=== PATIENT | male | born 1950 | race American Indian/Alaskan Native ===

== ENCOUNTER 2017-12-27 17:52 | Inpatient (IN) | payer MEDICARE, SELFPAY ==
--- NOTE | 2017-12-27 18:30 | ED PDOC ---
Arrival/HPI - General Chief Complaint: Lower Extremity Problem/Injury Time Seen by Provider: 12/27/17 18:14 Historian: Patient - History of Present Illness Narrative History of Present Illness (Text): 12/27/17 18:22 67 y/o male, pmh including htn/hyperlipidemia/DVT which he is on the coumadin on the RLE with IVC filter/chronic bilateral lower extremity swelling on and off for over past few months since september 2017/nephrotomy, last bilateral venuous doppler on the lower extremity was perform in 09/2016 which he stated that he had no DVT at that time, biba c/o bilateral lower extremity pain and swelling started about 3 days ago from eating fish?. Pt. stated that he has bilateral knee and lt. ankle pain, on and off, taking coumadin 10mg po daily, no fall or trauma, no chest pain or shortness of breath, no rash, no night sweat , no other medical or psychological complaints. Past Medical History - Provider Review Nursing Documentation Reviewed: Yes - Infectious Disease Hx of Infectious Diseases: None - Cardiac Hx Hypertension: Yes Hx Peripheral Vascular Disease: Yes Other/Comment: DVT with IVC filter - Renal Hx Renal Disorder: Yes Other/Comment: Nephrectomy - solitary kidney - Psychiatric Hx Substance Use: No - Surgical History Other/Comment: IVC filter - Anesthesia Hx Anesthesia: Yes Hx Anesthesia Reactions: No Hx Malignant Hyperthermia: No Family/Social History - Physician Review Nursing Documentation Reviewed: Yes Family/Social History: Unknown Family HX Smoking Status: Never Smoked Hx Alcohol Use: No Hx Substance Use: No Allergies/Home Meds Allergies/Adverse Reactions: Allergies No Known Allergies Allergy (Verified 12/27/17 18:21) Home Medications: Home Meds Medication Instructions Recorded Confirmed Lovastatin [Altoprev] 1 tab PO DAILY 12/27/17 12/27/17 Warfarin [Coumadin] 1 tab PO DAILY 12/27/17 12/27/17 amLODIPine [Norvasc] 1 tab PO DAILY 12/27/17 12/27/17 Review of Systems - Review of Systems Constitutional: absent: Fatigue, Fevers Eyes: absent: Vision Changes ENT: absent: Hearing Changes Respiratory: absent: SOB, Cough Cardiovascular: absent: Chest Pain Gastrointestinal: absent: Abdominal Pain, Nausea, Vomiting Musculoskeletal: Arthralgias, Myalgias. absent: Back Pain, Neck Pain, Joint Swelling Skin: absent: Rash, Pruritis, Skin Lesions Neurological: absent: Headache, Dizziness Psychiatric: absent: Anxiety, Depression Physical Exam Vital Signs Reviewed: Yes Vital Signs Temp Pulse Resp BP Pulse Ox 12/27/17 18:26 98.0 F 55 L 24 131/67 97 Temperature: Afebrile Blood Pressure: Normal Pulse: Bradycardic Respiratory Rate: Normal Appearance: Positive for: Well-Appearing, Non-Toxic, Comfortable Pain Distress: Moderate Mental Status: Positive for: Alert and Oriented X 3 - Systems Exam Head: Present: Atraumatic, Normocephalic Pupils: Present: PERRL Extroacular Muscles: Present: EOMI Conjunctiva: Present: Normal Mouth: Present: Moist Mucous Membranes Neck: Present: Normal Range of Motion Respiratory/Chest: Present: Clear to Auscultation, Good Air Exchange. No: Respiratory Distress, Accessory Muscle Use Cardiovascular: Present: Regular Rate and Rhythm, Normal S1, S2. No: Murmurs Abdomen: No: Tenderness, Distention, Peritoneal Signs Back: Present: Normal Inspection Upper Extremity: Present: Normal Inspection. No: Cyanosis, Edema Lower Extremity: Present: Normal Inspection, NORMAL PULSES, Normal ROM, Neurovascularly Intact, Capillary Refill < 2 s, Other (Bilateral lower extremities: +ttp on the rt. knee joint with mild swelling, +ttp on the lt. ankle and knee joint with mild swelling, 1+pedal edema bilateral lower extremities, no streaking, no cellulitis, +DPPT pulses, capillary refill< 2 seconds, neurovascular intact. ). No: Edema, Erythema, Deformity, Temperature Abnormalties Neurological: Present: GCS=15, CN II-XII Intact, Speech Normal Skin: Present: Warm, Dry, Normal Color. No: Rashes Psychiatric: Present: Alert, Oriented x 3, Normal Insight, Normal Concentration Medical Decision Making ED Course and Treatment: 12/27/17 18:39 -labs/bnp/uric acid/cardiac enzyme -Bilateral lower extremities venuous doppler -Chest xray/bilateral knee and lt. ankle xray -Colchicine 1.2mg po -Observe and reassess 12/27/17 20:11 -Bilateral lower extremities venuous doppler: as per preliminary report, partial thrombus on the rt. posterior popliteal thrombus -Chest xray show no active disease -Bilateral knee xrays show degenerative changes -Lt. ankle xray show post surgical changes, no fracture or dislocation -Labs show no acute findings except BUN 29 -BNP with normal limit -Troponin within normal limit -Uric acid with normal limit which the colchicine didn't relief the pain. -Pt. still in pain, percocet/zofrant ordered. -Pt. feels still having pain, on coumadin but keep having new DVT developed which is failure of outpatient treatment in this case. He has bilateral knee pain and swelling, high fall risk, been having pain with dehydration, will need orthopedic and hematology/oncology for consult. -Paging Dr. Huerta now for admission 12/27/17 21:13 -I spoke to Dr. Huerta discussed about the case/labs/radiology results in detail , request Dr. Puente (hematology and oncology) and Dr. House (orthopedic) on the routine consult, order placed and also request heparin drip despite INR 2.6. -I spoke to Dr. Banda about the case/labs/radiology result, he agreed with the IV heparin drip standard for dvt/pe but no IV heparin bolus. -I discussed all labs/radiology results and care of the plan with the patient and the daughter, they all agreed. Pt. refused guaiac and has no abdominal pain , no black color stool or stool discoloration. 12/27/17 21:21 -I spoke to the pharmacist Hernan, confirmed the order that I entered is IV heparin drip with no IV bolus. - Lab Interpretations Lab Results: 12/27/17 18:50 12/27/17 18:50 Lab Results 12/27/17 18:50: Sodium 144, Potassium 4.8, Chloride 107, Carbon Dioxide 27, Anion Gap 15, BUN 29 H, Creatinine 1.5, Est GFR ( Amer) 56, Est GFR (Non- Af Amer) 46, Random Glucose 102, Uric Acid 8.0, Calcium 9.3, Magnesium 2.0, Total Bilirubin 0.4, AST 35, ALT 30, Alkaline Phosphatase 78, Lactate Dehydrogenase 487, Total Creatine Kinase 206, Troponin I < 0.01, NT-Pro-B Natriuret Pep 119, Total Protein 7.8, Albumin 4.2, Globulin 3.6, Albumin/ Globulin Ratio 1.2 12/27/17 18:50: PT 30.8 H, INR 2.65 H, APTT 41.8 H 12/27/17 18:50: WBC 6.8, RBC 4.65, Hgb 12.7 L, Hct 38.6 L, MCV 83.0, MCH 27.3, MCHC 32.9, RDW 15.2 H, Plt Count 233, MPV 9.8, Gran % 56.6, Lymph % (Auto) 32.4 , Brantley % (Auto) 8.8 H, Eos % (Auto) 1.9, Baso % (Auto) 0.3, Gran # 3.87, Lymph # (Auto) 2.2, Brantley # (Auto) 0.6, Eos # (Auto) 0.1, Baso # (Auto) 0.02 I have reviewed the lab results: Yes - RAD Interpretation Radiology Orders: 12/27/17 18:30 CHEST PORTABLE [RAD] Stat DUPLEX LOWER EXTRM VEIN BILAT [US] Stat 12/27/17 18:31 ANKLE LEFT 3 VIEWS ROUTINE [RAD] Stat KNEE W PATELLA BILAT 3 VIEW [RAD] Stat Bilateral lower extremities venuous doppler: as per preliminary report, partial thrombus on the rt. posterior popliteal thrombus Chest xray: Lt. ankle xray: Bilateral knee xrays: Insurance Collector: Radiologist - EKG Interpretation Interpreted by ED Physician: Yes - Medication Orders Current Medication Orders: Heparin Sodium/Sodium Chloride (Heparin 12876 Units/250ml 1/2 Normal Saline) 25 ,000 units in 250 mls @ 15.546 mls/hr IV .Q16H5M PRN; Protocol; 18 UNITS/KG/HR PRN Reason: ADJUST RATE PER PROTOCOL Discontinued Medications Colchicine (Colocrys) 0.6 mg PO DAILY [facility] Colchicine (Colocrys) 1.2 mg PO STAT STA Stop: 12/27/17 18:33 Last Admin: 12/27/17 18:43 Dose: 1.2 mg Sodium Chloride (Sodium Chloride 0.9%) 500 mls @ 999 mls/hr IV .Q31M STA Stop: 12/27/17 19:58 Last Admin: 12/27/17 20:07 Dose: 999 mls/hr eMAR Start Stop Document 12/27/17 20:07 OCS (Rec: 12/27/17 20:07 OCS [id number]) Intravenous Solution Start Date 12/27/17 Start Time 20:07 End Date 12/27/17 End time 20:37 Total Infusion Time 30 Ondansetron HCl (Zofran Odt) 4 mg PO STAT STA Stop: 12/27/17 21:13 Oxycodone/Acetaminophen (Percocet 5/325 Mg Tab) 1 tab PO STAT STA Stop: 12/27/17 21:13 - PA / [employer] / Resident Statement / has reviewed & agrees with the documentation as recorded. Disposition/Present on Arrival - Present on Arrival Any Indicators Present on Arrival: No History of DVT/PE: No History of Uncontrolled Diabetes: No Urinary Catheter: No History of Decub. Ulcer: No History Surgical Site Infection Following: None - Disposition Have Diagnosis and Disposition been Completed?: Yes Diagnosis: Dehydration, Failure of outpatient treatment, DVT (deep venous thrombosis), Joint swelling of lower leg Disposition: HOSPITALIZED Disposition Time: 18:41 Patient Plan: Admission Patient Problems: Current Active Problems Problem Status Onset Dehydration Acute Failure of outpatient treatment Acute DVT (deep venous thrombosis) Acute Joint swelling of lower leg Acute Condition: STABLE Referrals: Ian Epstein MD [Primary Care Provider] - Follow up with primary Forms: Spodly (Chinese)
[2017-12-27 19:05] LABS: BASO # 0.02 K/mm3 (0.0-2.0); BASO % 0.3 % (0.0-3.0); EOS # 0.1 (0.0-0.7); EOS % 1.9 % (1.5-5.0); GRAN # 3.87 (1.4-6.5); GRAN % 56.6 % (50.0-68.0); HEMOGLOBIN 12.7 g/dL (14.0-18.0); LYMPH # 2.2 (1.2-3.4); LYMPH % 32.4 % (22.0-35.0); MEAN CORPUSCULAR HEMOGLOBIN 27.3 pg (25.0-35.0); MEAN CORPUSCULAR HGB CONC 32.9 g/dl (31.0-37.0); MEAN PLATELET VOLUME 9.8 fl (7.0-11.0); MONO # 0.6 (0.1-0.6); MONO % 8.8 % (1.0-6.0); RBC 4.65 10^6/uL (3.5-6.1); RED CELL DISTRIBUTION WIDTH 15.2 % (11.5-14.5); WHITE BLOOD COUNT 6.8 10^3/ul (4.5-11.0)
[2017-12-27 19:12] LABS: INR 2.65 (0.93-1.08); PARTIAL THROMBOPLASTIN TIME 41.8 Seconds (25.1-36.5); PROTHROMBIN TIME 30.8 SECONDS (9.4-12.5)
[2017-12-27 19:14] LABS: ALB/GLOB RATIO 1.2 (1.1-1.8); ALBUMIN 4.2 g/dL (3.0-4.8); ALT/SGPT 30 U/L (7-56); AST/SGOT 35 U/L (17-59); BLOOD UREA NITROGEN 29 mg/dL (7-21); CALCIUM 9.3 mg/dL (8.4-10.5); GFR AFRICAN-AMERICAN 56; GFR NON-AFRICAN AMERICAN 46
[2017-12-27 19:25] LABS: B-TYPE NATRIURETIC PEPTIDE 119 pg/mL (0-450); TROPONIN I < 0.01 ng/mL
[2017-12-27] MEDS ORDERED: Sodium Chloride 0.9% 500 ML IV STA (19:28)
[2017-12-27] MEDS ORDERED: Oxycodone/Acetaminophen 5/325 mg Tab PO STA (21:12)
[2017-12-27] MEDS: Heparin25000 units/250ml 1/2NS 25,000 UNITS/250 ML BAG IV PRN (21:49)
[2017-12-27 23:17] VITALS: BMI 30.7
[2017-12-27] MEDS ORDERED: Pneumococcal 23-Valent Vaccine IM ONE (23:34)
--- NOTE | 2017-12-28 08:52 | RAD ---
HISTORY: leg pain COMPARISON: No prior. FINDINGS: LUNGS: No active pulmonary disease. PLEURA: No significant pleural effusion identified, no pneumothorax apparent. CARDIOVASCULAR: Mild cardiomegaly OSSEOUS STRUCTURES: No significant abnormalities. VISUALIZED UPPER ABDOMEN: Normal. OTHER FINDINGS: None. IMPRESSION: No active disease.
--- NOTE | 2017-12-28 09:37 | RAD ---
PROCEDURE: Left Ankle Radiographs. HISTORY: pain and swelling COMPARISON: None FINDINGS: BONES: There is an old fracture deformity of the distal tibia and fibula. No acute fracture JOINTS: Normal. No osteoarthritis. Ankle mortise maintained. Talar dome intact SOFT TISSUES: Normal. OTHER FINDINGS: None. IMPRESSION: There is an old fracture deformity of the distal tibia and fibula. No acute fracture
--- NOTE | 2017-12-28 10:09 | RAD ---
PROCEDURE: Bilateral knees and patella HISTORY: pain and swelling COMPARISON: TECHNIQUE: Three views of each knee FINDINGS: The left knee is unremarkable. There is an old fracture of the proximal fibula. Severe degenerative changes are seen in the medial compartment of the right knee with joint space narrowing, bony sclerosis and osteophyte formation. Degenerative changes are also seen in the patellofemoral joint. IMPRESSION: As above
[2017-12-28] MEDS: LOVASTATIN 20 MG PO SCH (14:11)
--- NOTE | 2017-12-28 14:48 | CP.PCM.CON ---
History of Present Illness - History of Present Illness History of Present Illness: Heme Onc Consult Note Dr. Puente CC: Right leg pain and swelling HPI: 67 AA M with a PMHx of HTN, HLD, CAD, RLE DVT (7 years ago) on coumadin 10 mg daily, left nephrotomy, multiple falls, rt knee fracture, left ankle fracture with hardware, Right groin IVC filter presented tot he [facility] with complaints bilateral lower extremity swelling and pain that has progressively worsened over the past 3 days. of last bilateral venuous doppler on the lower extremity was perform in 09/2016 which he stated that he had no DVT at that time. Pt has been [place] [facility] [place] in the past. Heme on was consulted for assessment and evaluation for recurrent DVT, last dvt 7 years ago and has been compliant with coumadin at home. Pt was seen and examined at bedside. Pt has mild complaints of lower extremity pain, bilaterally rated at a 6/10 throbbing in nature. Pt denied fever, chills, sob, chest pains, abdominal pains , nausea, vomiting, diarrhea, constipation, or dysuria. PMHx:HTN, HLD, CAD, RLE DVT (7 years ago) on coumadin 10 mg daily, left nephrotomy, multiple falls, rt knee fracture, left ankle fracture with hardware , Right groin IVC filte PHSx: Rt groin ivc filter, left ankle hardware, right knee repair, left nephrectomy SHx: Denied smoking, etoh, illicit substances, retired FamHx: Denied Meds: MAR Reviewed Allergies: NKDA Review of Systems - Review of Systems Review of Systems: as per hPI otherwise negative Past Patient History - Infectious Disease Hx of Infectious Diseases: None - Past Social History Smoking Status: Never Smoked - CARDIAC Hx Cardiac Disorders: Yes (mi) Hx Angina: No Hx Cardia Arrhythmia: No Hx Circulatory Problems: No Hx Congestive Heart Failure: No Hx Heart Murmur: No Hx Heart Transplant: No Hx Hypercholesterolemia: Yes Hx Hypertension: Yes Hx Internal Defibrillator: No Hx Mitral Valve Prolapse: No Hx Pacemaker: No Hx Peripheral Edema: No Hx Peripheral Vascular Disease: Yes Other/Comment: dvt right leg with ivc filter - PULMONARY Hx Respiratory Disorders: Yes Hx Asthma: No Hx Bronchitis: No Hx Chronic Obstructive Pulmonary Disease (COPD): No Hx Emphysema: No Hx Pneumonia: Yes Hx Respiratory Aspiration: No Hx Respiratory Tract Infection: No Hx Sleep Apnea: No Hx Tuberculosis: No - NEUROLOGICAL Hx Neurological Disorder: Yes Hx Alzheimer's Disease: No HX Cerebrovascular Accident: No Hx Dementia: No Hx Dizziness: No Hx Meningitis: No Hx Migraine: No Hx Parkinson's Disease: No Hx Seizures: Yes (not on medications) Hx Transient Ischemic Attacks (TIA): No - HEENT Hx HEENT Problems: Yes (glasses) Hx Blind: No Hx Cataracts: No Hx Deafness: No Hx Difficulty Chewing: No Hx Epistaxis: No Hx Glaucoma: No Hx Macular Degeneration: No - RENAL Hx Chronic Kidney Disease: Yes (left kidney mass/ left nephrectomy) Hx Dialysis: No Hx Kidney Stones: No Hx Neurogenic Bladder: No Hx Pyelonephritis: No Hx Renal (Kidney) Cancer: No Hx Renal Failure: No - ENDOCRINE/METABOLIC Hx Endocrine Disorders: No Hx Adrenal Cancer: No Hx Diabetes Insipidus: No Hx Diabetes Mellitus Type 1: No Hx Diabetes Mellitus Type 2: No Hx Hyperthyroidism: No Hx Hypothyroidism: No Hx Systemic Lupus Erythematosus: No - HEMATOLOGICAL/ONCOLOGICAL Hx Blood Disorders: Yes Hx AIDS: No Hx Anemia: No Hx Cancer: Yes (possible kidney ca/ left nephrectomy) Hx Chemotherapy: No Hx Cirrhosis: No Hx Hemophilia: No Hx Hepatitis A: No Hx Hepatitis B: No Hx Hepatitis C: No Hx Human Immunodeficiency Virus (HIV): No Hx Metastesis: No Hx Shingles: No Hx Sickle Cell Disease: No Hx Unexplained Bleeding: No - INTEGUMENTARY Hx Dermatological Problems: No Hx Basil Cell: No Hx Eczema: No Hx Melanoma: No Hx Psoriasis: No Hx Squamous Cell: No - MUSCULOSKELETAL/RHEUMATOLOGICAL Hx Musculoskeletal Disorders: Yes Hx Falls: Yes Hx Fractures: Yes (left ankle / hardware) Hx Unsteady Gait: Yes (walker/ cane) - GASTROINTESTINAL Hx Gastrointestinal Disorders: No Hx Colostomy: No Hx Crohn's Disease: No Hx Diverticulitis: No Hx Gall Bladder Disease: No Hx Gastroesophageal Reflux: No Hx Ileostomy: No Hx Liver Failure: No Hx Pancreatitis: No HX Swallowing Problems: No Hx Ulcer: No - GENITOURINARY/GYNECOLOGICAL Hx Genitourinary Disorders: No Hx Hematuria: No Hx Incontinence: No Hx Prostate Problems: No Hx Sexually Transmitted Disorders: No Hx Urinary Tract Infection: No - PSYCHIATRIC Hx Psychophysiologic Disorder: No Hx Anxiety: No Hx Bipolar Disorder: No Hx Depression: No Hx Emotional Abuse: No Hx Hallucinations: No Hx Panic Symptoms: No Hx Paranoia: No Hx Post Traumatic Stress Disorder: No Hx Psychosis: No Hx Physical Abuse: No Hx Schizophrenia: No Hx Sexual Abuse: No - SURGICAL HISTORY Hx Surgeries: Yes (right leg ivc filter, left nephrectomy) Hx Cardiac Catheterization: No Hx Coronary Stent: No Hx Orthopedic Surgery: Yes (left ankle fracture/ hardware) - ANESTHESIA Hx Anesthesia: Yes Hx Anesthesia Reactions: No Hx Malignant Hyperthermia: No Meds Allergies/Adverse Reactions: Allergies Allergy/AdvReac Type Severity Reaction Status Date / Time No Known Allergies Allergy Verified 12/27/17 18:21 - Medications Medications: Current Medications Acetaminophen (Tylenol 325mg Tab) 650 mg PO Q4H PRN PRN Reason: pain fever Amlodipine Besylate (Norvasc) 5 mg PO DAILY [facility] Last Admin: 12/28/17 09:04 Dose: 5 mg Famotidine (Pepcid) 40 mg PO HS [facility] Heparin Sodium/Sodium Chloride (Heparin 95364 Units/250ml 1/2 Normal Saline) 25 ,000 units in 250 mls @ 15.546 mls/hr IV .Q16H5M PRN; Protocol; 18 UNITS/KG/HR PRN Reason: ADJUST RATE PER PROTOCOL Last Titration: 12/28/17 14:00 Dose: 11.57 units/kg/hr, 10 mls/hr Lovastatin [Altoprev (] 20mg) 1 tab PO DAILY [facility] Last Admin: 12/28/17 14:11 Dose: Not Given Ondansetron HCl (Zofran Inj) 4 mg IVP Q6 PRN PRN Reason: Nausea/Vomiting Physical Exam - Constitutional Appears: No Acute Distress - Head Exam Head Exam: ATRAUMATIC, NORMAL INSPECTION, NORMOCEPHALIC - Eye Exam Eye Exam: EOMI, Normal appearance, PERRL Pupil Exam: NORMAL ACCOMODATION, PERRL - ENT Exam ENT Exam: Mucous Membranes Moist, Normal Exam - Respiratory Exam Respiratory Exam: Clear to Auscultation Bilateral, NORMAL BREATHING PATTERN - Cardiovascular Exam Cardiovascular Exam: REGULAR RHYTHM - GI/Abdominal Exam GI & Abdominal Exam: Normal Bowel Sounds, Soft. absent: Tenderness - Extremities Exam Extremities exam: Positive for: calf tenderness, pedal edema, tenderness, pedal pulses present - Neurological Exam Neurological exam: Alert, CN II-XII Intact, Oriented x3, Reflexes Normal - Psychiatric Exam Psychiatric exam: Normal Affect, Normal Mood - Skin Skin Exam: Dry, Intact, Normal Color, Warm Results - Vital Signs Recent Vital Signs: Last Vital Signs Temp 97.5 F L 12/28/17 07:58 Pulse 60 12/28/17 09:04 Resp 18 12/28/17 07:58 BP 131/82 12/28/17 09:04 Pulse Ox 98 12/28/17 07:58 - Labs Result Diagrams: 12/27/17 18:50 12/27/17 18:50 Labs: Laboratory Results - last 24 hr 12/28/17 12/28/17 04:10 11:40 APTT 212.0 H* > 400.0 H* Assessment & Plan - Assessment and Plan (Free Text) Assessment: 67 AA M with a PMHx of HTN, HLD, CAD, RLE DVT (7 years ago) on coumadin 10 mg daily, left nephrotomy, multiple falls, rt knee fracture, left ankle fracture with hardware, Right groin IVC filter presented tot he [facility] with complaints bilateral lower extremity swelling and pain that has progressively worsend over the past 3 days. Agree with iv heparin drip as per protocol. Will do a complete hypercoaguable workup as to why pt has had recurrent DVT in the RLE despite being on AC with coumadin at home with good compliance as per patient. PT/OT, analgesics
[2017-12-28] MEDS: Heparin25000 units/250ml 1/2NS 25,000 UNITS/250 ML BAG IV PRN (17:18)
--- NOTE | 2017-12-28 22:48 | US ---
HISTORY: Leg pain and swelling. Evaluate for DVT PHYSICIAN(S): Logan Arizmendi MD. TECHNIQUE: Duplex sonography and color-flow Doppler with graded compression were used to evaluate the deep venous systems of both lower extremities. FINDINGS: There is partially recannulized heterogeneous thrombus noted in the right popliteal vein. The right femoral vein and right common femoral vein are patent and compressible. There is no sonographic evidence of deep venous thrombosis in the visualized segments of left lower extremity IMPRESSION: Partially recannulized subacute/chronic thrombus in the right popliteal vein
[2017-12-29 02:30] LABS: BASO # 0.04 K/mm3 (0.0-2.0); BASO % 0.7 % (0.0-3.0); EOS # 0.2 (0.0-0.7); EOS % 3.1 % (1.5-5.0); GRAN # 2.09 (1.4-6.5); GRAN % 38.8 % (50.0-68.0); HEMOGLOBIN 12.2 g/dL (14.0-18.0); LYMPH # 2.5 (1.2-3.4); LYMPH % 45.9 % (22.0-35.0); MEAN CELL VOLUME 82.2 fl (80.0-105.0); MEAN CORPUSCULAR HEMOGLOBIN 27.2 pg (25.0-35.0); MEAN CORPUSCULAR HGB CONC 33.1 g/dl (31.0-37.0); MEAN PLATELET VOLUME 9.8 fl (7.0-11.0); MONO # 0.6 (0.1-0.6); MONO % 11.5 % (1.0-6.0); RBC 4.49 10^6/uL (3.5-6.1); RED CELL DISTRIBUTION WIDTH 14.7 % (11.5-14.5); WHITE BLOOD COUNT 5.4 10^3/ul (4.5-11.0)
[2017-12-29 02:44] LABS: INR 2.43 (0.93-1.08); PARTIAL THROMBOPLASTIN TIME 78.2 Seconds (25.1-36.5); PROTHROMBIN TIME 28.2 SECONDS (9.4-12.5)
[2017-12-29 03:23] LABS: ALB/GLOB RATIO 1.1 (1.1-1.8); ALBUMIN 3.5 g/dL (3.0-4.8); CALCIUM 8.9 mg/dL (8.4-10.5)
[2017-12-29 04:22] LABS: IRON 68 ug/dL (45-180)
[2017-12-29 04:32] LABS: % IRON SATURATION 24 % (20-55); TOTAL IRON BINDING CAPACITY 283 ug/dL (261-462)
--- NOTE | 2017-12-29 08:21 | HP ---
CHIEF COMPLAINT: Swelling of legs. HISTORY OF PRESENT ILLNESS: Mr. Benoit Fields is a 67-year-old male with history of hypercholesterolemia, DVT, not getting Coumadin, with IVC filter, chronic bilateral lower extremity swelling on and off for over past few months since 09/2017, nephrectomy, last bilateral venous Doppler on the lower extremity was performed on 09/2016, patient stated that it had no DVT at that time. Now came with complaining of bilateral lower extremity pain and swelling, started about 3 days ago from eating fish. Patient states that he has had bilateral knee and internal ankle pain on and off, taking Coumadin 10 mg daily. No fall or trauma injury. No chest pain. No shortness of breath. No fever. No chills. No headache. No dizziness. PAST MEDICAL HISTORY: As above. Hypertension, peripheral vascular disease, DVT with IVC filter, nephrectomy with solitary kidney with IVC filter. FAMILY HISTORY: Father and mother, noncontributory. HABITS: No smoking, no drug, no ethanol. ALLERGIES: PATIENT IS NOT ALLERGIC WITH ANY MEDICATIONS. HOME MEDICATIONS: Lovastatin, Coumadin, amlodipine. REVIEW OF SYSTEMS: Patient is seen and examined at bedside in his room. No fever. No fatigue. No vision loss or change. No headache, no dizziness. No hearing loss. No shortness of breath. No coughing. No chest pain. No abdominal pain. No nausea or vomiting. No myalgia, no arthralgia. No back pain, neck pain or joint pain. No rash. No headache or dizziness. PHYSICAL EXAMINATION: VITAL SIGNS: Temperature 98, pulse 65, respiratory rate 24, blood pressure 130/67, pulse oximetry 97%. HEENT: Head normocephalic atraumatic. Eyes, PERRLA. Extraocular muscles intact. Conjunctivae clear. Nose patent. Mucous membrane moist. NECK: Supple. No carotid bruit. No JVD or thyromegaly. CHEST: Bilaterally symmetrical. HEART: S1 and S2 positive. Positive swelling of legs . NEUROLOGIC: Patient is awake and alert. Moving all 4 extremities. No focal deficit. LABORATORY DATA: White blood cells 6.8, hemoglobin 12.7, hematocrit 38.6, platelets 233. Sodium 145, potassium 4.8, BUN noted , creatinine 1.5, glucose 106. ASSESSMENT AND PLAN: Mr. Benoit Fields is a 67-year-old male with anemia, came with dehydration, failure to outpatient treatment with Coumadin, deep venous thrombosis, joint swelling of the lower extremities, seen by neurologist, ultrasound was read by Dr. Logan Arizmendi, and chest x-ray reviewed. History of hypertension, hypercholesterolemia, coronary artery disease; right lower extremity deep venous thrombosis 7 years ago, on Coumadin; left nephrectomy; multiple falls; right knee fracture; left ankle fracture with hardware; right groin inferior vena cava filter, otherwise it is hard to protect. Patient is admitted, heparin drip started, Hematology consult called by Dr. Puente. Repeat labs. We will follow up. Rosalva Huerta MD MTDD
[2017-12-29] MEDS: LOVASTATIN 20 MG PO SCH (10:00)
--- NOTE | 2017-12-30 03:03 | PN ---
DATE: 12/29/2017 HEMATOLOGY ONCOLOGY PROGRESS NOTE: SUBJECTIVE: The patient was asked to be seen by us for new onset of popliteal vein thrombosis, right lower extremity. In the background of the fact the patient has history of right lower extremity DVT 7 years ago, was on Coumadin, history of left nephrectomy, multiple falls, right knee fracture, left ankle fracture with hardware, right groin with inferior vena cava filter presented to the emergency room at [facility] with bilateral lower extremity swelling and pain that has progressively worsened. Prior to the admission, the patient had bilateral venous Doppler of the lower extremity performed on 10/09/2016, which said there was no DVT. The patient had been treated at [facility] for DVT in the past. The patient was on Coumadin at home, and in view of the new finding, the concern was the patient had developed a new DVT while on Coumadin and with the new onset of pain bilaterally rated at 6/10, throbbing in nature, the patient was started on IV heparin, pending further diagnostic testing to make sure hypercoagulable state did not exist in which case the patient would have to be switched over to either Lovenox or Xa inhibitor. PAST MEDICAL HISTORY: Significant for hypertension, hyperlipidemia, coronary artery disease, right lower extremity DVT, on Coumadin, left nephrectomy, multiple falls, right knee fracture, left ankle fracture with hardware, right groin with IVC filter, with history of pain associated with a new finding of a popliteal vein thrombosis. PHYSICAL EXAMINATION: VITAL SIGNS: Stable as stated in the chart. The patient examined by the bedside. T-max is 98.4, pulse is 60, respirations 18, blood pressure 131/82, pulse ox is 98% on room air. HEENT: Head is normocephalic, atraumatic, Conjunctivae pale. Pupils are equally reactive to light and accommodation. Examination of the oropharynx revealed no oropharyngeal lesions. LUNGS: Clear to percussion and auscultation. CARDIOVASCULAR: S1 and S2 normal. No gallop or murmur is heard. ABDOMEN: Soft, nontender. Bowel sounds are present. No rebound, rigidity, or guarding is noted. EXTREMITIES: Reveals calf tenderness. Bilateral pedal edema with tenderness. Pedal pulses are felt. NEUROLOGIC: Reveals higher functions are normal. No focal deficits are noted. SKIN: Turgor is normal. No skin lesions are noted. LABORATORY DATA: White count is 6.8, hemoglobin 12.6, hematocrit 38.6, platelet count 233. Sodium is 144, potassium 4.8, chloride 107, CO2 27, BUN of 29, creatinine of 1.5, blood sugar of 102. ASSESSMENT, NOTES AND PLAN: This 67-year-old male who was admitted to the hospital with a background history of being on Coumadin with an inferior vena cava filter and history of multiple falls. Also having right knee fracture, left ankle fracture, both of which are old, has an inferior vena cava filter as well, has progressively worsening swelling over the last three days prior to admission. Currently, the patient is on IV heparin. Coagulation workup has been sent for hypercoagulable state, results are still pending. In the mean time, we will continue IV heparin for 72 hours totally and then plan switching him to either Lovenox or Xa inhibitor. Further management will depend on what the findings on the hypercoagulable workup. We will discuss the case with Dr. Huerta and also speak to the patient in great detail. Jewel Puente MD
[2017-12-30] MEDS: Heparin25000 units/250ml 1/2NS 25,000 UNITS/250 ML BAG IV PRN (06:05)
[2017-12-30 07:49] LABS: BASO # 0.05 K/mm3 (0.0-2.0); EOS # 0.3 (0.0-0.7); EOS % 5.4 % (1.5-5.0); GRAN # 2.08 (1.4-6.5); GRAN % 40.4 % (50.0-68.0); HEMOGLOBIN 12.6 g/dL (14.0-18.0); LYMPH # 2.2 (1.2-3.4); LYMPH % 41.9 % (22.0-35.0); MEAN CELL VOLUME 81.9 fl (80.0-105.0); MEAN CORPUSCULAR HEMOGLOBIN 26.8 pg (25.0-35.0); MEAN CORPUSCULAR HGB CONC 32.7 g/dl (31.0-37.0); MEAN PLATELET VOLUME 10.4 fl (7.0-11.0); MONO # 0.6 (0.1-0.6); MONO % 11.3 % (1.0-6.0); RBC 4.7 10^6/uL (3.5-6.1); RED CELL DISTRIBUTION WIDTH 14.8 % (11.5-14.5); WHITE BLOOD COUNT 5.2 10^3/ul (4.5-11.0)
[2017-12-30 07:56] LABS: INR 1.49 (0.93-1.08); PROTHROMBIN TIME 17.3 SECONDS (9.4-12.5)
[2017-12-30 07:59] LABS: ALB/GLOB RATIO 1.1 (1.1-1.8); ALBUMIN 3.7 g/dL (3.0-4.8); CALCIUM 9.3 mg/dL (8.4-10.5)
[2017-12-30] MEDS: LOVASTATIN 20 MG PO SCH (09:40)
--- NOTE | 2017-12-30 12:00 | CP.PCM.CON ---
History of Present Illness - History of Present Illness History of Present Illness: Podiatry Consult Note- Dr. Blanco 67 y.o male with PMHx of HTN, HLD, CAD, history of RLE DVT on coumadin consulted for bilaterally ankle pain and swelling. Patient reports that 30 years ago, he fell off a ladder which he sustained a left open fracture. Patient unsure location of fracture. He was rushed to the hospital via ambulance and had surgery for left lower extremity. Reports that two screws were inserted to repair the fracture. Reports that his wound healed. Since then , he reports having intermittent swelling to the left ankle that comes and goes. Reports noticing more swelling in the last couple of years. Reports in the last few days the swelling has gotten worse that he is unable to walk or put weight on the left foot. He rates his pain 10/10 today. Reports pain most at the ankle and posterior heel. Also reports cramping pain to the left posterior calf. Denies nausea, fever, shortness of breath, chest pain or chills. Patient reports that he was told in the past that he has a limb length discrepancy which he would need specialized shoes. Patient states he tried getting them 3 years ago but was having issues because of insurance. Has not gotten customed made shoes. PMH: HTN, HLD, CAD, history of RLE DVT on coumadin PSH: Right knee fracture surgery, left ankle fracture surgery with internal fixation, right groin IVC filter, left nephrectomy SH: denies smoking, socially drinks EtOH, or illicit drug use FH: mother- Alzheimer, father- denies MEDS: see MAR list ALL: NKDA Past Patient History - Infectious Disease Hx of Infectious Diseases: None - Past Social History Smoking Status: Never Smoked - CARDIAC Hx Cardiac Disorders: Yes (mi) Hx Angina: No Hx Cardia Arrhythmia: No Hx Circulatory Problems: No Hx Congestive Heart Failure: No Hx Heart Murmur: No Hx Heart Transplant: No Hx Hypercholesterolemia: Yes Hx Hypertension: Yes Hx Internal Defibrillator: No Hx Mitral Valve Prolapse: No Hx Pacemaker: No Hx Peripheral Edema: No Hx Peripheral Vascular Disease: Yes Other/Comment: dvt right leg with ivc filter - PULMONARY Hx Respiratory Disorders: Yes Hx Asthma: No Hx Bronchitis: No Hx Chronic Obstructive Pulmonary Disease (COPD): No Hx Emphysema: No Hx Pneumonia: Yes Hx Respiratory Aspiration: No Hx Respiratory Tract Infection: No Hx Sleep Apnea: No Hx Tuberculosis: No - NEUROLOGICAL Hx Neurological Disorder: Yes Hx Alzheimer's Disease: No HX Cerebrovascular Accident: No Hx Dementia: No Hx Dizziness: No Hx Meningitis: No Hx Migraine: No Hx Parkinson's Disease: No Hx Seizures: Yes (not on medications) Hx Transient Ischemic Attacks (TIA): No - HEENT Hx HEENT Problems: Yes (glasses) Hx Blind: No Hx Cataracts: No Hx Deafness: No Hx Difficulty Chewing: No Hx Epistaxis: No Hx Glaucoma: No Hx Macular Degeneration: No - RENAL Hx Chronic Kidney Disease: Yes (left kidney mass/ left nephrectomy) Hx Dialysis: No Hx Kidney Stones: No Hx Neurogenic Bladder: No Hx Pyelonephritis: No Hx Renal (Kidney) Cancer: No Hx Renal Failure: No - ENDOCRINE/METABOLIC Hx Endocrine Disorders: No Hx Adrenal Cancer: No Hx Diabetes Insipidus: No Hx Diabetes Mellitus Type 1: No Hx Diabetes Mellitus Type 2: No Hx Hyperthyroidism: No Hx Hypothyroidism: No Hx Systemic Lupus Erythematosus: No - HEMATOLOGICAL/ONCOLOGICAL Hx Blood Disorders: Yes Hx AIDS: No Hx Anemia: No Hx Cancer: Yes (possible kidney ca/ left nephrectomy) Hx Chemotherapy: No Hx Cirrhosis: No Hx Hemophilia: No Hx Hepatitis A: No Hx Hepatitis B: No Hx Hepatitis C: No Hx Human Immunodeficiency Virus (HIV): No Hx Metastesis: No Hx Shingles: No Hx Sickle Cell Disease: No Hx Unexplained Bleeding: No - INTEGUMENTARY Hx Dermatological Problems: No Hx Basil Cell: No Hx Eczema: No Hx Melanoma: No Hx Psoriasis: No Hx Squamous Cell: No - MUSCULOSKELETAL/RHEUMATOLOGICAL Hx Musculoskeletal Disorders: Yes Hx Falls: Yes Hx Fractures: Yes (left ankle / hardware) Hx Unsteady Gait: Yes (walker/ cane) - GASTROINTESTINAL Hx Gastrointestinal Disorders: No Hx Colostomy: No Hx Crohn's Disease: No Hx Diverticulitis: No Hx Gall Bladder Disease: No Hx Gastroesophageal Reflux: No Hx Ileostomy: No Hx Liver Failure: No Hx Pancreatitis: No HX Swallowing Problems: No Hx Ulcer: No - GENITOURINARY/GYNECOLOGICAL Hx Genitourinary Disorders: No Hx Hematuria: No Hx Incontinence: No Hx Prostate Problems: No Hx Sexually Transmitted Disorders: No Hx Urinary Tract Infection: No - PSYCHIATRIC Hx Psychophysiologic Disorder: No Hx Anxiety: No Hx Bipolar Disorder: No Hx Depression: No Hx Emotional Abuse: No Hx Hallucinations: No Hx Panic Symptoms: No Hx Paranoia: No Hx Post Traumatic Stress Disorder: No Hx Psychosis: No Hx Physical Abuse: No Hx Schizophrenia: No Hx Sexual Abuse: No - SURGICAL HISTORY Hx Surgeries: Yes (right leg ivc filter, left nephrectomy) Hx Cardiac Catheterization: No Hx Coronary Stent: No Hx Orthopedic Surgery: Yes (left ankle fracture/ hardware) - ANESTHESIA Hx Anesthesia: Yes Hx Anesthesia Reactions: No Hx Malignant Hyperthermia: No Meds Allergies/Adverse Reactions: Allergies Allergy/AdvReac Type Severity Reaction Status Date / Time No Known Allergies Allergy Verified 12/27/17 18:21 - Medications Medications: Current Medications Acetaminophen (Tylenol 325mg Tab) 650 mg PO Q4H PRN PRN Reason: pain fever Amlodipine Besylate (Norvasc) 5 mg PO DAILY [facility] Last Admin: 12/30/17 09:40 Dose: 5 mg Famotidine (Pepcid) 40 mg PO HS [facility] Last Admin: 12/29/17 21:54 Dose: 40 mg Heparin Sodium/Sodium Chloride (Heparin 60980 Units/250ml 1/2 Normal Saline) 25 ,000 units in 250 mls @ 15.546 mls/hr IV .Q16H5M PRN; Protocol; 18 UNITS/KG/HR PRN Reason: ADJUST RATE PER PROTOCOL Last Admin: 12/30/17 06:05 Dose: 8.1 units/kg/hr, 7 mls/hr Lovastatin [Altoprev (] 20mg) 1 tab PO DAILY [facility] Last Admin: 12/30/17 09:40 Dose: Not Given Ondansetron HCl (Zofran Inj) 4 mg IVP Q6 PRN PRN Reason: Nausea/Vomiting Physical Exam - Constitutional Appears: Well, Non-toxic, No Acute Distress - Extremities Exam Extremities exam: Positive for: calf tenderness Additional comments: VASC: DP and PT 2/4 bilaterally ORTHO: severe pain with palpation to the medial and lateral malleolus, moderate pain with palpation to the calcaneus, mild pain with ankle ROM, MM is 5/5 in all four compartments of dorsiflexion, plantarflexion, inversion, eversion, tendernes noted to palpation of the calf bilaterally, limb length discrepancy noted, left LE is slightly shorter than right LE, moderate swelling noted to the right ankle > L ankle, pain with external rotation and dorsiflexion NEURO: gross and protective sensation intact DERM: no open lesions, no erythema, no clinical signs of infection - Neurological Exam Neurological exam: Alert, Oriented x3 - Psychiatric Exam Psychiatric exam: Normal Affect, Normal Mood Results - Vital Signs Recent Vital Signs: Last Vital Signs Temp 97.9 F 12/30/17 06:00 Pulse 53 L 12/30/17 06:00 Resp 18 12/30/17 06:00 BP 118/82 12/30/17 06:00 Pulse Ox 97 12/30/17 06:00 - Labs Result Diagrams: 12/30/17 07:39 12/30/17 07:39 Labs: Laboratory Results - last 24 hr 12/29/17 12/29/17 12/30/17 02:15 02:15 07:39 WBC 5.2 RBC 4.70 Hgb 12.6 L Hct 38.5 L MCV 81.9 MCH 26.8 MCHC 32.7 RDW 14.8 H Plt Count 236 MPV 10.4 Gran % 40.4 L Lymph % (Auto) 41.9 H Roosevelt % (Auto) 11.3 H Eos % (Auto) 5.4 H Baso % (Auto) 1.0 Gran # 2.08 Lymph # (Auto) 2.2 Roosevelt # (Auto) 0.6 Eos # (Auto) 0.3 Baso # (Auto) 0.05 PT INR APTT Sodium Potassium Chloride Carbon Dioxide Anion Gap BUN Creatinine Est GFR ( Amer) Est GFR (Non-Af Amer) Random Glucose Hemoglobin A1c 6.1 Calcium Total Bilirubin AST ALT Alkaline Phosphatase Total Protein Albumin Globulin Albumin/Globulin Ratio Folate 8.0 TSH 3rd Generation 12/30/17 12/30/17 12/30/17 07:39 07:39 07:39 WBC RBC Hgb Hct MCV MCH MCHC RDW Plt Count MPV Gran % Lymph % (Auto) Roosevelt % (Auto) Eos % (Auto) Baso % (Auto) Gran # Lymph # (Auto) Roosevelt # (Auto) Eos # (Auto) Baso # (Auto) PT 17.3 H INR 1.49 H APTT 56.0 H Sodium 144 Potassium 4.0 Chloride 108 H Carbon Dioxide 26 Anion Gap 15 BUN 21 Creatinine 1.6 H Est GFR ( Amer) 52 Est GFR (Non-Af Amer) 43 Random Glucose 93 Hemoglobin A1c Calcium 9.3 Total Bilirubin 0.6 AST 28 ALT 19 Alkaline Phosphatase 72 Total Protein 7.1 Albumin 3.7 Globulin 3.5 Albumin/Globulin Ratio 1.1 Folate TSH 3rd Generation 3.81 Assessment & Plan - Assessment and Plan (Free Text) Assessment: 67 y.o male with PMHx of HTN, HLD, CAD, history of RLE DVT on coumadin with left ankle pain and swelling with 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 Blanco X-rays reviewed - Impression: old fracture deformity of distal fibular and tibial. No acute fracture noted. 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
--- NOTE | 2017-12-30 14:01 | PN ---
DATE: 12/30/2017 This is [facility] visit on the medical floor. For Dr. Puente. SUBJECTIVE: The patient is a 67-year-old male, seen sitting up in bed, now being treated with IV heparin with the patient known to have suffered from popliteal vein thrombosis in the right lower extremity, history of DVT 7 years ago, on Coumadin. However, the Coumadin does not appear to be therapeutic. Also, history of inferior vena cava with multiple falls with lower extremity discomfort worsening prior to admission. His labs have been sent for hypercoagulable workup with IV heparin continuing in the interim. With this, the patient is otherwise in no acute distress. The patient did have a Doppler of the lower extremities on 12/27/2017 showing partially recanalized subacute chronic thrombus in the right popliteal vein. One would expect this may have been cleared after being on Coumadin for such a significant period of time; however, it is not. OBJECTIVE PHYSICAL EXAMINATION: VITAL SIGNS: Temperature 97.9, pulse 53, respirations 18, blood pressure 118/82, pulse ox 97%. HEENT: Unremarkable. NECK: Supple. HEART: Regular rate. LUNGS: Clear. ABDOMEN: Obese, soft, nontender. EXTREMITIES: Fait +1 edema bilaterally with minimal tenderness to the knees, right greater than left. NEUROLOGIC: Awake, alert and oriented. SKIN: Otherwise, warm, dry and clear. LABORATORY DATA: The patient's labs were done. White blood cell count of 5.2, hemoglobin 12.6, hematocrit 38.5, platelet count of 236,000 with a chem metabolic panel showing a chloride of 108, creatinine of 1.6, down from 1.7 yesterday with a normal BUN of 21, down from 23 yesterday. His chem metabolic panel is otherwise negative. TSH is 3.8 with a homocysteine value of 13.5 on 12/28/2017. His INR is 1.49 today with 2.43 yesterday with a PTT of 56 on heparin. His fibrinogen value from 2 days prior is 538. His other testing is pending including antiphospholipid antibody, antithrombin III activity, beta-2 microglobulin, cardiolipin antibodies, DRVVT testing, factor II, factor V Leiden, factor VII antigen, factor X activity and protein C and S activities. ASSESSMENT: The assessment for this patient is that of subacute/chronic thrombus, right popliteal vein; history of heparin continued use; inferior vena cava filter placement; right knee fracture; left ankle fracture; peripheral vascular disease with edema, rule out hypercoagulable state. Also, the patient does have hypertension, coronary artery disease, status post left nephrectomy. PLAN: Plan for this patient after conversation with Dr. Puente is to continue his present medical regimen with consideration for change to either Lovenox or a factor Xa inhibitor as per results of the patient's lab testing. The patient was also advised to follow up with Dr. Puente in the office as the patient's significant lab workup may not all be returned while he is presently hospitalized with followup in the office necessary for completion of his recommendations and further care as indicated. This is a complex patient with a comprehensive medically necessary and appropriate visit carried out in excess of 30 minutes' [id number] time with the patient's questions answered to his satisfaction. Fausto Hadley MD
--- NOTE | 2017-12-30 18:16 | PN ---
DATE: 12/30/2017 SUBJECTIVE: The patient is 67-year-old male. The patient is seen and examined on the bedside, looking comfortable. No change in the status, still has swelling of the leg. No fever, no chills, no hematuria or hematochezia, no headache or dizziness. PHYSICAL EXAMINATION: VITAL SIGNS: Temperature 97.9, pulse 53, respiratory rate 18, blood pressure 120/80, pulse oximetry 97% on room air. HEENT: Head normocephalic, atraumatic. Eyes PERRLA. Extraocular muscles intact. Conjunctivae clear. Nose patent. Mucous membrane moist. NECK: Supple. No carotid bruit. No JVD or thyromegaly. CHEST: Bilaterally symmetrical. HEART: S1 and S2 positive. LUNGS: Clear to auscultation. ABDOMEN: Soft. Bowel sounds positive. No organomegaly. EXTREMITIES: +1 bilateral edema with minimal tenderness to the knees, right greater than the left. NEUROLOGIC: The patient is awake, alert. Moving all four extremities. No focal deficit. LABORATORY DATA: White blood cell is 5.3, hemoglobin 12.6, hematocrit 38.5, platelets 236,000. Creatinine 1.6, BUN 21, TSH 3.8. ASSESSMENT AND PLAN: Mr. Benoit Corea is 67-year-old male with history of deep venous thrombosis, right popliteal; history of heparin, continued use; inferior vena cava filter placement; right knee fracture; left ankle fracture; peripheral vascular disease with edema, rule out hypercoagulable state with hypertension, coronary artery disease, status post left nephrectomy. Dr. Puente is on the case. PLAN: Plan for this patient after Dr. Puente's ED note is to continue heparin considering to change to either Lovenox or a factor Xa inhibitor as per results of the patient's lab testing. GI and DVT prophylaxis. Continue present treatment, out of bed, physical therapy, repeat labs. We will follow. Rosalva Huerta MD
[2017-12-30 22:17] LABS: PHOSPHATIDYLSERINE AB IGG <10 U/mL (<10); PHOSPHATIDYLSERINE AB IGM <25 U/mL (<25)
--- NOTE | 2017-12-31 01:25 | PN ---
DATE: 12/29/2017 SUBJECTIVE: The patient is a 67-year-old male. The patient was seen and examined on the bedside on 12/29/2017, looking comfortable. Still having swelling of the legs. No nausea, vomiting, diarrhea. No hematuria or hematochezia. No fever. No chills. No headache. No dizziness. PHYSICAL EXAMINATION: VITAL SIGNS: Temperature 98.4, pulse 60, respiratory rate 18, blood pressure 130/80, pulse oximetry is 98% on room air. HEENT: Head normocephalic, atraumatic. Eyes PERRLA. Extraocular muscles intact. Conjunctivae clear. Nose patent. Mucous membrane moist. NECK: Supple. No carotid bruit. No JVD or thyromegaly. CHEST: Bilaterally symmetrical. HEART: S1 and S2 positive. LUNGS: Clear to auscultation. ABDOMEN: Soft. Bowel sounds positive. No organomegaly. EXTREMITIES: No edema. No cyanosis. NEUROLOGICAL: The patient is awake and alert. Moving all 4 extremities. No focal deficits. LABORATORY DATA: White blood cells 6.8, hemoglobin 12.6, hematocrit 38.6, platelets 233. Sodium 144, potassium 4.8, BUN 29, creatinine 1.5, glucose 102. MEDICATIONS: Reviewed by me. ASSESSMENT AND PLAN: Mr. Benoit Fields, 67-year-old male has history of clots in the legs, has inferior vena cava filter and multiple falls, has right knee fracture, left knee fracture, both of which are old, has progressively worsening over the last 3 days prior to admission. The patient is getting IV heparin. Coagulation workup is in the process. Continue IV heparin for 72 hours before switching to Lovenox or factor X inhibitors. Further treatment plan on the finding of the hypercoagulable workup. Hematology is on the case. I appreciated Dr. Hooper's input. The patient has history of hypertension, hypercholesterolemia, coronary artery disease, right lower extremity deep venous thrombosis, history of left nephrectomy, history of pain associated with new finding of the popliteal vein thrombosis. Out of bed, physical therapy. We will follow up. Rosalva Huerta MD [facility] # [id number]
[2017-12-31 05:41] LABS: B2 GLYCOPROTEIN I AB(IGA) <9 SAU (<=20); B2 GLYCOPROTEIN I AB(IGG) <9 SGU (<=20); B2 GLYCOPROTEIN I AB(IGM) <9 SMU (<=20)
[2017-12-31 06:32] LABS: BASO # 0.04 K/mm3 (0.0-2.0); BASO % 0.7 % (0.0-3.0); EOS # 0.2 (0.0-0.7); EOS % 3.6 % (1.5-5.0); GRAN # 2.26 (1.4-6.5); GRAN % 39.3 % (50.0-68.0); HEMOGLOBIN 12.5 g/dL (14.0-18.0); LYMPH # 2.6 (1.2-3.4); LYMPH % 45.8 % (22.0-35.0); MEAN CELL VOLUME 81.8 fl (80.0-105.0); MEAN CORPUSCULAR HEMOGLOBIN 26.4 pg (25.0-35.0); MEAN CORPUSCULAR HGB CONC 32.3 g/dl (31.0-37.0); MEAN PLATELET VOLUME 9.7 fl (7.0-11.0); MONO # 0.6 (0.1-0.6); MONO % 10.6 % (1.0-6.0); RBC 4.73 10^6/uL (3.5-6.1); RED CELL DISTRIBUTION WIDTH 14.9 % (11.5-14.5); WHITE BLOOD COUNT 5.8 10^3/ul (4.5-11.0)
[2017-12-31 06:43] LABS: ALB/GLOB RATIO 1.1 (1.1-1.8); ALBUMIN 3.6 g/dL (3.0-4.8); CALCIUM 9.3 mg/dL (8.4-10.5)
[2017-12-31 06:48] LABS: INR 1.2 (0.93-1.08); PROTHROMBIN TIME 13.9 SECONDS (9.4-12.5)
[2017-12-31 07:21] LABS: CARDIOLIPIN AB (IGA) <11 APL (<=11); CARDIOLIPIN AB (IGG) <14 GPL (<=14); CARDIOLIPIN AB (IGM) <12 MPL (<=12); PHOSPHATIDYLSERINE AB IGA <20 U/mL (<20)
[2017-12-31 09:01] LABS: CARDIOLIPIN AB (IGA) <11 APL (<=11)
[2017-12-31] MEDS: LOVASTATIN 20 MG PO SCH (10:15)
--- NOTE | 2017-12-31 15:45 | CP.PCM.PN ---
Subjective - Date & Time of Evaluation Date of Evaluation: 12/31/17 Time of Evaluation: 15:41 - Subjective Subjective: 67 y/o male seen at bedside this afternoon with attending Dr. Blanco for left ankle pain. Pt states he had an open ankle fracture over 30 years ago and over the last few years he has been having a lot of pain due to the arthritis in his ankle. He states the pain has gradually worsened over time. He states it is fairly painful to walk on it or move the ankle, but he tries to move the joint to maintain as much motion and function as possible. He admits to a history of blood clots in his right leg and has had a filter placed. He states he tried using a special shoe made by an commercial lines account manager, which was very beneficial and helped greatly in decreasing his pain. He states he misplaced these shoes and since then the pain has returned. States he would get them again but they were very expensive. At present, denies numbness, tingling or burning. Denies F/C/N/V/CP/ SOB Objective - Vital Signs/Intake and Output Vital Signs (last 24 hours): Temp Pulse Resp BP Pulse Ox 97.6 F 60 18 110/72 95 12/31/17 08:17 12/31/17 10:20 12/31/17 08:17 12/31/17 10:20 12/31/17 08:17 Intake and Output: 12/31/17 12/31/17 06:59 18:59 Intake Total 420 780 Output Total 750 Balance -330 780 - Medications Medications: Current Medications Acetaminophen (Tylenol 325mg Tab) 650 mg PO Q4H PRN PRN Reason: pain fever Last Admin: 12/31/17 08:42 Dose: 650 mg Amlodipine Besylate (Norvasc) 5 mg PO DAILY [facility] Last Admin: 12/31/17 10:20 Dose: 5 mg Famotidine (Pepcid) 40 mg PO HS [facility] Last Admin: 12/30/17 21:29 Dose: 40 mg Fenofibrate (Tricor) 48 mg PO DAILY [facility] Last Admin: 12/31/17 10:20 Dose: 48 mg Heparin Sodium/Sodium Chloride (Heparin 06945 Units/250ml 1/2 Normal Saline) 25 ,000 units in 250 mls @ 15.546 mls/hr IV .Q16H5M PRN; Protocol; 18 UNITS/KG/HR PRN Reason: ADJUST RATE PER PROTOCOL Last Titration: 12/31/17 07:56 Dose: 10.42 units/kg/hr, 9 mls/hr Lovastatin [Altoprev (] 20mg) 1 tab PO DAILY [facility] Last Admin: 12/31/17 10:15 Dose: Not Given Ondansetron HCl (Zofran Inj) 4 mg IVP Q6 PRN PRN Reason: Nausea/Vomiting - Labs Labs: 12/31/17 06:00 12/31/17 06:00 PT 13.9 SECONDS (9.4-12.5) H 12/31/17 06:00 INR 1.20 (0.93-1.08) H 12/31/17 06:00 APTT 39.0 Seconds (25.1-36.5) H 12/31/17 06:00 - Constitutional Appears: Well, Non-toxic, No Acute Distress - Extremities Exam Additional comments: VASC: DP and PT 2/4 B/L ORTHO: moderate-severe pain with palpation to the medial and lateral malleolus, moderate pain with palpation to the calcaneus. Mild pain with ankle ROM both active and passive. MMT is 5/5 in all four compartments of dorsiflexion, plantarflexion, inversion, eversion. Tenderness noted to palpation of the calf bilaterally, R>L. Limb length discrepancy noted, left LE is slightly shorter than right LE. 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 No acute fracture noted. C/w compression of left ankle and foot for swelling RICE protocol of left LE C/w pain management Recommend that pt follow up as outpatient with Dr. Blanco - will be referred to commercial lines account manager for supramalleolar orthotic brace to restrict motion at ankle joint No surgical intervention by podiatry during this admission Patient may WBAT in surgical shoe RLE DVT management per primary, recurrent DVT etiology unclear Podiatry to sign off at this time Pt given referral to Dr. Blanco's office as outpatient for follow up management Thank you for allowing us to participate in patient's care
[2017-12-31] MEDS: Heparin25000 units/250ml 1/2NS 25,000 UNITS/250 ML BAG IV PRN (17:29)
--- NOTE | 2018-01-01 00:31 | PN ---
DATE: 12/31/2017 SUBJECTIVE: The patient is a 67-year-old male. The patient was seen and examined on the bedside on 12/31/2017 complaining of pain in the left ankle. According to him, he has injury of the left ankle long time ago and developed arthritis. Then, he got some orthopedic shoes that was helping him. After a while, he lost those shoes that was costly, after that he was not able to buy more. Now, he has pain from the left ankle and right leg has DVT, history of [place] filter. No nausea or vomiting. No hematuria or hematochezia. No headache. No dizziness. No chest pain. No palpitation. PHYSICAL EXAMINATION: VITAL SIGNS: Temperature 97.6, pulse 60, respiratory rate 18, blood pressure 110/72, pulse oximetry of 95. HEENT: Head normocephalic, atraumatic. Eyes PERRLA. Extraocular muscles intact. Conjunctivae clear. Nose patent. NECK: Supple. No carotid bruit. No JVD or thyromegaly. CHEST: Bilaterally symmetrical. HEART: S1 and S2 positive. LUNGS: Clear to auscultation. ABDOMEN: Soft. Bowel sounds positive. No organomegaly. EXTREMITIES: No edema. No cyanosis. NEUROLOGICAL: The patient is awake and alert. Moving all 4 extremities. No focal deficits. LABORATORY DATA: White blood cells 5.8, hemoglobin 12.5, hematocrit 38.7, platelets 252. Sodium 143, potassium 4.1, BUN 24, creatinine 1.5, glucose 94. MEDICATIONS: Acetaminophen, Norvasc, Pepcid, Tricor, heparin, lovastatin, Zofran. ASSESSMENT AND PLAN: Mr. Benoit Fields, a 67-year-old male with anemia, renal insufficiency with left ankle pain and swelling with posttraumatic arthritis secondary to left ankle fracture and right and left lower extremity edema secondary to deep venous thrombosis. The patient is seen and examined by Dr. Blanco. X-rays reviewed. The patient has old fracture deformity. Getting compression of the left ankle and foot for swelling. RICE protocol for the left lower extremity. Pain management. Dr. Puente, oncologist is on the case. Podiatry is on the case. The patient has right lower extremity recurrent deep venous thrombosis, unclear etiology. Podiatry signed off, but we gave phone number of Dr. Blanco to the patient. The patient was seen by Dr. Fausto Hadley, covering Dr. Puente. Waiting for coagulation profile ordered. Continue heparin. Right knee fracture, also left peripheral vascular disease with edema, poor hypercoagulable state, history of left nephrectomy. Repeat labs. Waiting for Dr. Puente's input. Rosalva Huerta MD
[2018-01-01 06:29] LABS: BASO # 0.03 K/mm3 (0.0-2.0); BASO % 0.5 % (0.0-3.0); EOS # 0.3 (0.0-0.7); EOS % 5.2 % (1.5-5.0); GRAN # 2.15 (1.4-6.5); GRAN % 35.7 % (50.0-68.0); HEMOGLOBIN 12.5 g/dL (14.0-18.0); LYMPH % 49.8 % (22.0-35.0); MEAN CELL VOLUME 82.4 fl (80.0-105.0); MEAN CORPUSCULAR HEMOGLOBIN 26.5 pg (25.0-35.0); MEAN CORPUSCULAR HGB CONC 32.2 g/dl (31.0-37.0); MEAN PLATELET VOLUME 9.9 fl (7.0-11.0); MONO # 0.5 (0.1-0.6); MONO % 8.8 % (1.0-6.0); RBC 4.71 10^6/uL (3.5-6.1); RED CELL DISTRIBUTION WIDTH 15.1 % (11.5-14.5)
[2018-01-01 06:38] LABS: ALB/GLOB RATIO 1.1 (1.1-1.8); ALBUMIN 3.6 g/dL (3.0-4.8); CALCIUM 9.2 mg/dL (8.4-10.5)
[2018-01-01 06:54] LABS: INR 1.14 (0.93-1.08); PARTIAL THROMBOPLASTIN TIME 48.3 Seconds (25.1-36.5); PROTHROMBIN TIME 13.1 SECONDS (9.4-12.5)
[2018-01-01 08:03] VITALS: BP 123/78; RESP 20; TEMP 97.6; O2SAT 98
[2018-01-01 09:47] VITALS: PULSE 62
[2018-01-01] MEDS: LOVASTATIN 20 MG PO SCH (10:27)
--- NOTE | 2018-01-01 11:03 | CP.PCM.PN ---
Subjective - Date & Time of Evaluation Date of Evaluation: 01/01/18 Time of Evaluation: 08:00 - Subjective Subjective: Heme Onc Progress Note Dr Puente Patient was seen and examined at bedside. Patient has no acute complaints at this time. Patient is ambulatory, with steady gait. He is tolerating oral intake and having regular bowel and bladder movements. Patient denied fever chills shortness of breath, chest pains, abdominal pains nausea, vomiting, constipation, diarrhea or dysuria. Objective - Vital Signs/Intake and Output Vital Signs (last 24 hours): Temp Pulse Resp BP Pulse Ox 97.6 F 62 20 123/78 98 01/01/18 08:02 01/01/18 09:45 01/01/18 08:02 01/01/18 09:45 01/01/18 08:02 Intake and Output: 01/01/18 01/01/18 06:59 18:59 Intake Total 944 67 Output Total 1825 Balance -881 67 - Medications Medications: Current Medications Acetaminophen (Tylenol 325mg Tab) 650 mg PO Q4H PRN PRN Reason: pain fever Last Admin: 12/31/17 08:42 Dose: 650 mg Amlodipine Besylate (Norvasc) 5 mg PO DAILY [facility] Last Admin: 01/01/18 09:45 Dose: 5 mg Famotidine (Pepcid) 40 mg PO HS [facility] Last Admin: 12/31/17 21:59 Dose: 40 mg Fenofibrate (Tricor) 48 mg PO DAILY [facility] Last Admin: 01/01/18 09:45 Dose: 48 mg Heparin Sodium/Sodium Chloride (Heparin 47517 Units/250ml 1/2 Normal Saline) 25 ,000 units in 250 mls @ 15.546 mls/hr IV .Q16H5M PRN; Protocol; 18 UNITS/KG/HR PRN Reason: ADJUST RATE PER PROTOCOL Last Titration: 01/01/18 07:49 Dose: 10.94 units/kg/hr, 9.448 mls/hr Lovastatin [Altoprev (] 20mg) 1 tab PO DAILY [facility] Last Admin: 01/01/18 10:27 Dose: Not Given Ondansetron HCl (Zofran Inj) 4 mg IVP Q6 PRN PRN Reason: Nausea/Vomiting - Labs Labs: 01/01/18 06:00 01/01/18 06:00 PT 13.1 SECONDS (9.4-12.5) H 01/01/18 06:00 INR 1.14 (0.93-1.08) H 01/01/18 06:00 APTT 48.3 Seconds (25.1-36.5) H 01/01/18 06:00 - Constitutional Appears: No Acute Distress - Head Exam Head Exam: ATRAUMATIC, NORMAL INSPECTION, NORMOCEPHALIC - Eye Exam Eye Exam: EOMI, Normal appearance, PERRL Pupil Exam: NORMAL ACCOMODATION, PERRL - ENT Exam ENT Exam: Mucous Membranes Moist, Normal Exam - Respiratory Exam Respiratory Exam: Clear to Ausculation Bilateral, NORMAL BREATHING PATTERN - Cardiovascular Exam Cardiovascular Exam: REGULAR RHYTHM, +S1, +S2. absent: Murmur - GI/Abdominal Exam GI & Abdominal Exam: Soft, Normal Bowel Sounds. absent: Tenderness - Extremities Exam Extremities Exam: Tenderness Additional comments: B/l lower extremities wrapped and dressed, with boots - Neurological Exam Neurological Exam: Alert, Awake, CN II-XII Intact, Normal Gait, Oriented x3 - Psychiatric Exam Psychiatric exam: Normal Affect, Normal Mood - Skin Skin Exam: Dry, Intact, Normal Color, Warm Assessment and Plan - Assessment and Plan (Free Text) Assessment: 67 AA M with a PMHx of HTN, HLD, CAD, RLE DVT (7 years ago) on coumadin 10 mg daily, left nephrotomy, multiple falls, rt knee fracture, left ankle fracture with hardware, Right groin IVC filter presented tot he [facility] [place] with complaints bilateral lower extremity swelling and pain that has progressively worsend. Patient to complete IV heparin drip today at which time we will recommend Elaquis 5mg BID for AC. Full hypercouaguable workup pending. Pt ok to DC with strict followup outpatient with Dr. Puente with lab results.
== END 2018-01-01 17:31 | disposition home or self-care (01) | DRG 301 ==
LOC: EDBD 17:52 → ED 17:52 → ERH 21:14 → 3RNO 22:48
PROVIDERS: ADMIT Internal Medicine; ATTEND Internal Medicine
DX: I82.431 Acute embolism and thrombosis of right popliteal vein (principal); E78.00 Pure hypercholesterolemia, unspecified; I73.9 Peripheral vascular disease, unspecified; E86.0 Dehydration; I25.10 Atherosclerotic heart disease of native coronary artery without angina pectoris; M19.172 Post-traumatic osteoarthritis, left ankle and foot; D64.9 Anemia, unspecified; I10 Essential (primary) hypertension; R29.6 Repeated falls; Z86.718 Personal history of other venous thrombosis and embolism; Z90.5 Acquired absence of kidney